=== PATIENT | female | born 2005 | race Two or more races ===

== ENCOUNTER 2024-04-08 09:54 | Emergency (ER) | payer MEDICAID ==
[~2024-04-08] VITALS: Ht 167.6 cm; Wt 112.9 kg
[2024-04-08] MEDS: KETOROLAC TROMETH 60MG/2ML VIAL IM ONE (10:45)
[2024-04-08] MEDS ORDERED: IBUP-1456 PO (10:48)
[2024-04-08] MEDS ORDERED: BACL10TA PO (10:48)
[2024-04-08 11:27] VITALS: BP 125/82; PULSE 100; RESP 14; TEMP 97.1; O2SAT 100
== END 2024-04-08 11:36 | disposition home or self-care (01) ==
LOC: ER 09:54
DX: M54.41 Lumbago with sciatica, right side (principal); E66.01 Morbid (severe) obesity due to excess calories; Z68.41 Body mass index [BMI] 40.0-44.9, adult
CPT/HCPCS: 96372; 99283; J1885